=== PATIENT | male | born 1950 | race Caucasian/White ===

== ENCOUNTER 2023-03-09 11:17 | Day surgery (SDC) | payer MEDICARE ==
[2023-03-09] MEDS ORDERED: SYNVISC 16 MG/2 ML SYRINGE IU ONE (11:18)
[2023-03-09] MEDS ORDERED: XYLOCAINE-MPF 1% 5ML SDV IJ ONE (11:18)
[2023-03-09] MEDS ORDERED: DIPRIVAN 200 MG/20 ML IV ONE (13:07)
[2023-03-09] MEDS ORDERED: Lactated Ringers 1,000 ML IV ONE (15:03)
--- NOTE | 2023-03-09 21:09 | XRAY ---
Indication: Left knee injection. Intraoperative fluoroscopy provided for 10 seconds. Single digital spot image submitted for interpretation demonstrates needle tip projecting over left femur intercondylar notch. Small amount of contrast injected for needle tip placement. Correlate with intraoperative findings/report.
--- NOTE | 2023-03-09 21:43 | XRAY ---
10 seconds of fluoroscopy was used in surgery for a left intra-articular knee injection.
== END 2023-03-09 13:33 | disposition home or self-care (01) ==
LOC: SDC-PAIN 11:17
PROVIDERS: ATTEND Psychiatry & Neurology Pain Medicine
DX: M17.12 Unilateral primary osteoarthritis, left knee (principal)
CPT/HCPCS: 20610; 73560; 77002; J2704; J7325; Q9966

== ENCOUNTER → 2023-03-16 | Day surgery (SDC) | payer MEDICARE ==
[~2023-03-16] MED LIST: SYNVISC 16 MG/2 ML SYRINGE IU ONE
--- NOTE | 2023-03-16 18:46 | XRAY ---
Indication: Left knee injection. Intraoperative fluoroscopy provided for 6 seconds. Single digital spot image submitted for interpretation demonstrates needle tip projecting over the left femur intercondylar notch. Small amount of contrast injected for needle tip placement. Correlate with intraoperative findings/report.
--- NOTE | 2023-03-16 18:50 | XRAY ---
6 seconds of fluoroscopy was used in surgery for a left intra-articular knee injection.
== END ==
LOC: SDC-PAIN 14:14
PROVIDERS: ATTEND Psychiatry & Neurology Pain Medicine
DX: M17.12 Unilateral primary osteoarthritis, left knee (principal)
CPT/HCPCS: 20610; 73560; 77002; J7325; Q9966

== ENCOUNTER 2023-03-23 11:42 | Day surgery (SDC) | payer MEDICARE ==
[2023-03-23] MEDS ORDERED: SYNVISC 16 MG/2 ML SYRINGE IU ONE (11:43)
--- NOTE | 2023-03-23 16:37 | XRAY ---
Indication: Left knee injection. Intraoperative fluoroscopy provided for 9 seconds. Single digital spot image submitted for interpretation demonstrates needle tip projecting over the left femur intercondylar notch. Small amount of contrast injected for needle tip placement. Correlate with intraoperative findings/report.
--- NOTE | 2023-03-23 16:48 | XRAY ---
9 seconds of fluoroscopy was used in surgery for a left intra-articular knee injection.
== END 2023-03-23 14:38 | disposition home or self-care (01) ==
LOC: SDC-PAIN 11:42
PROVIDERS: ATTEND Psychiatry & Neurology Pain Medicine
DX: M17.12 Unilateral primary osteoarthritis, left knee (principal); Z79.899 Other long term (current) drug therapy
CPT/HCPCS: 20610; 73560; 77002; J7325; Q9966